=== PATIENT | female | born 1955 | race Caucasian/White ===

== ENCOUNTER 2020-09-27 09:49 | Emergency (ER) | payer OTHER ==
[2020-09-27] MEDS ORDERED: HYDROCODONE/ACETAMINOPHEN 10/325 MG TAB ONE (11:59)
[2020-09-27] MEDS ORDERED: LIDOCAINE HCL-MPF 2% 5ML VIAL ONE (12:01)
== END 2020-09-27 13:58 | disposition home or self-care (01) ==
LOC: EDH 09:49
DX: S52.502A Unspecified fracture of the lower end of left radius, initial encounter for closed fracture (principal); S52.602A Unspecified fracture of lower end of left ulna, initial encounter for closed fracture; Z90.49 Acquired absence of other specified parts of digestive tract; W18.39XA Other fall on same level, initial encounter; Y93.89 Activity, other specified; Y92.89 Other specified places as the place of occurrence of the external cause; Y99.8 Other external cause status
CPT/HCPCS: 29125; 73110; J3490

== ENCOUNTER 2021-11-04 11:43 | Emergency (ER) | payer OTHER ==
[~2021-11-04] VITALS: Ht 162.6 cm; Wt 50.3 kg
[2021-11-04 13:41] VITALS: BP 128/86
[2021-11-04] MEDS ORDERED: IBUP-2070 PO (13:55)
[2021-11-04] MEDS ORDERED: ACET1TAB25 PO (13:55)
== END 2021-11-04 14:04 | disposition home or self-care (01) ==
LOC: EDH 11:43
DX: M25.551 Pain in right hip (principal); Z90.49 Acquired absence of other specified parts of digestive tract; Z98.890 Other specified postprocedural states; W18.39XA Other fall on same level, initial encounter; Y93.89 Activity, other specified; Y92.89 Other specified places as the place of occurrence of the external cause; Y99.8 Other external cause status
CPT/HCPCS: 73502